=== PATIENT | female | born 1950 | race Caucasian/White ===

== ENCOUNTER 2021-09-18 23:15 | Emergency (ER) | payer BC, MEDICARE ==
[2021-09-18] MEDS ORDERED: Sodium Chloride 0.9% 10 ML Syringe FLUSH PRN (23:44)
[2021-09-18] MEDS ORDERED: Sodium Chloride 0.9% 1,000 ML IV STA (23:44)
[2021-09-18] MEDS ORDERED: Ondansetron 4 MG/2 ML SDV IVPUSH ONE (23:45)
[2021-09-18] MEDS ORDERED: fentaNYL 100 MCG/2 ML SDV IVPUSH ONE (23:45)
[2021-09-19 00:31] LABS: ESTIMATED GFR 60 mL/min (>60); TROPONIN I HIGH SENSITIVITY 46.8 pg/mL (<=60.3)
[2021-09-19] MEDS ORDERED: Iopamidol 612 MG/ML 100 ML Bottle IV STA (00:35)
[2021-09-19] MEDS ORDERED: Sodium Chloride 0.9% 50 ML IV STA (00:36)
== END 2021-09-19 02:48 | disposition home or self-care (01) ==
LOC: JP.ED 23:15
DX: K85.30 Drug induced acute pancreatitis without necrosis or infection (principal); T50.905A Adverse effect of unspecified drugs, medicaments and biological substances, initial encounter; I48.91 Unspecified atrial fibrillation; I10 Essential (primary) hypertension; J44.9 Chronic obstructive pulmonary disease, unspecified; E03.9 Hypothyroidism, unspecified; F17.210 Nicotine dependence, cigarettes, uncomplicated; Z88.8 Allergy status to other drugs, medicaments and biological substances; Z79.01 Long term (current) use of anticoagulants; Z79.899 Other long term (current) drug therapy; Z88.5 Allergy status to narcotic agent
CPT/HCPCS: 36415; 74177; 80053; 83605; 83690; 84478; 84484; 85025; 85610; 96360; 96361; 99284; J3490; J7030; Q9967; 99283

== ENCOUNTER 2021-09-28 16:20 | Emergency (ER) | payer MEDICARE ==
[2021-09-28 18:12] LABS: ESTIMATED GFR 68 mL/min (>60); TROPONIN I HIGH SENSITIVITY 38.5 pg/mL (<=60.3)
[2021-09-28] MEDS ORDERED: Furosemide 40 MG/4 ML VIAL IM ONE (18:27)
[2021-09-28] MEDS ORDERED: Albuterol 0.083% 2.5 MG/3 ML Neb Soln NEB ONE (18:28)
[2021-09-28] MEDS ORDERED: Sodium Chloride 0.9% 10 ML Syringe FLUSH PRN (18:41)
[2021-09-28] MEDS ORDERED: Furosemide 40 MG/4 ML VIAL IVPUSH ONE (18:41)
== END 2021-09-28 20:58 | disposition home or self-care (01) ==
LOC: JP.ED 16:20
DX: I11.0 Hypertensive heart disease with heart failure (principal); I50.9 Heart failure, unspecified; J44.9 Chronic obstructive pulmonary disease, unspecified; E03.9 Hypothyroidism, unspecified; Z88.8 Allergy status to other drugs, medicaments and biological substances; Z79.899 Other long term (current) drug therapy; Z79.01 Long term (current) use of anticoagulants
CPT/HCPCS: 36415; 71046; 80053; 81001; 82150; 83690; 83880; 84484; 85025; 94640; 96374; 99285; J1940; J3490